=== PATIENT | female | born 1960 | race Caucasian/White ===

== ENCOUNTER 2021-06-02 14:30 | Outpatient (RCR) | payer OTHER, SELFPAY ==
--- NOTE | 2021-05-20 16:00 | HP.PTEVAL_ITS ---
Patient's Visit Information JESSICA BORREGO is a 60 year old F referred to Physical Therapy by Dr. Harjinder Gomez DO with a diagnosis of B knee OA. Date of Evaluation: 05/20/21 Physical Therapist: London Wade, PT, ATC - Visit Plan Frequency: 1x/Week Duration: 1-2 weeks Plan: Issue and instruct pt on HEP of B LE strengthening and core stab next visit - Subjective Pt reports she has had B knee pain for approximately 15 years. Pt notes she always hoped it would go away as she was too young for TKA, but the pain has progressively worsened and she now wants to try some treatment for her pain. Pt notes she had recent x-rays which revealed significant OA in B knees. Pt was told she is a candidate for TKA, but would like to try PT first. Pt reports she has had the stem cells transplant, injections, and PT in the past with no succes s. Pt denies tingling or numbness in her LE's. Pt denies sleep difficulty at this time. Pt reports she has difficulty with chair transfers, walking up or down inclines, and stairs are all difficult secondary to pain. Pt reports she would like to be able to go on walks but cant secondary to B knee pain. 0/10 pain at rest, 8/10 at worst. No popping, clicking, locking up, or giving out at this time. Pt reports she is scheduled for R TKA on 08/31/21 at this time. - Pain B knees Pain Intensity (Out of 10): 0 Pain Intensity Range: 8 - Objective Neuro: B LE sensation is WNL to light touch. B achilles reflex= 2/3. Palpation: Mild swelling noted at this time. Crepitus present with AROM. Girth at joint line: R knee = 46 cm, L knee 45 cm. ROM: R knee 0-12-125, L knee 0-14-120. MMT: B knee flex= 5/5, ext= 4-/5 and painful. Special tests: No pos findings this date - Balance/Special Test Scores Lower Extremity Functional Score: 38 - Goals Goal 1:: I with HEP Goal Time Frame: 1 Week - Rehabilitation Potential Physical Therapy Diagnosis: Pt has B knee pain, weakness, and limited ROM secondary to degenerative changes in B knees Rehabilitation Potential: Good - Anticipated Interventions Patient/Client Instruction: Educate patient on: Condition, Plan of Care For the Purpose of:: To improve self management Therapeutic Exercise to Include: Strength training, Endurance training, Active ROM, Dynamic Lumbar Stabilization For the Purpose of:: To decrease pain, To increase ROM, To improve muscle performance and motor function Cryotherapy (ice pack, ice massage): Yes For the Purpose of:: To decrease pain Thank you for the opportunity to evaluate your patient. For Medicare and Medicare HMO plans, please review the plan of care and approve it. It will need to be FAXED BACK to us at [phone] for Medicare purposes. For Medicare only, by signing this I certify the plan of care. Please let me know if there are questions or concerns regarding this plan of care. Physician Signature: Date:
--- NOTE | 2021-06-02 15:23 | HP.PTDCSUM ---
It has been my pleasure to treat JESSICA BORREGO referred by Dr. Harjinder Gomez DO, with the diagnosis of B knee OA for a total of 2 visit(s). Discharge Date: Please see the following information for a summary of their discharge status. Subjective: Mild pain this date B knees Pain Intensity (Out of 10): 5 % Improvement: 0 Objective/Function: Pt is now I with HEP. Rx goals achieved Goal 1:: I with HEP Goal Progress: Goal Met Plan: Issue and instruct pt on HEP of B LE strengthening and core stab next visit If there are questions or concerns regarding this patient's physical therapy, please feel free to call me at [phone]. Thank you for the referral of this patient. Sincerely, London Wade, PT, ATC Balance/Gait/Functional tests - Balance/Special Test Scores Lower Extremity Functional Score: 38
== END 2021-06-02 19:00 | disposition home or self-care (01) ==
LOC: PT 14:30
PROVIDERS: PCP Family Medicine; Referring Provider Orthopaedic Surgery; Visit Provider Orthopaedic Surgery
DX: M17.0 Bilateral primary osteoarthritis of knee (principal)
CPT/HCPCS: 97110; 97161

== ENCOUNTER 2021-06-02 15:57 | Outpatient (CLI) | payer OTHER, SELFPAY ==
--- NOTE | 2021-06-02 16:01 | CT_ITS ---
STUDY: CT SCAN LOWER EXTREMITY RIGHT.[facility] protocol. REASON FOR EXAM: Female, 61 years old. Templating for right TKA RADIATION DOSAGE (If Supplied By Facility): CTDIvol = ( 26.71 ) mGy, DLP = ( 1775.93 ) mGycm. Individualized dose optimization techniques were used for this CT.? TECHNIQUE: Multiple axial tomographic images of the right hip, knee and ankle joints were obtained. Coronal and sagittal reconstructions obtained as well. COMPARISON: None. FINDINGS: Imaging of the right hip joint was obtained. No significant abnormality is seen. Imaging of the right knee joint was obtained. There is a marked degree of joint space narrowing involving the medial compartment of the knee joint with the chest perforation of the distal medial femoral condyle as well as the medial tibial plateau. Degenerative spur formation is seen along the lateral femoral condyle and tibial plateau. Moderate degree of joint space narrowing of the patellofemoral joint with degenerative spur formation. Small joint effusion. Imaging of the ankle joint was obtained. No significant abnormality is seen. There is evidence of a small plantar spur. CT/Extremity Lower without Contra IMPRESSION: Marked degree of joint space narrowing with degenerative spur formation involving the medial compartment of the knee joint as well as the patellofemoral joint. Electronically Signed: Desmond Stover MD at 15:34 EST ,
== END 2021-06-02 23:59 | disposition home or self-care (01) ==
LOC: CT 16:00
PROVIDERS: PCP Family Medicine; Referring Provider Orthopaedic Surgery; Visit Provider Orthopaedic Surgery
DX: M17.0 Bilateral primary osteoarthritis of knee (principal)
CPT/HCPCS: 73700

== ENCOUNTER 2021-07-09 19:44 | Emergency (ER) | payer OTHER, SELFPAY ==
[2021-07-09 19:44] VITALS: BP 180/81; PULSE 71; RESP 16; TEMP 36.6; O2SAT 98; BMI 31.9
--- NOTE | 2021-07-09 20:06 | EDS_ITS ---
HPI History of Present Illness Chief Complaint: Back Narrative Narrative: Patient presents with low back pain for about a week. She does not know of any injury although she does lift at work. The pain does not radiate into her legs, she does not have any bowel or bladder compromise she does not have any urinary retention symptoms. She has no saddle anesthesia. She has no fevers or chills. She has no abdominal pain nausea or vomiting or constipation. She was seen by orthopedics and given steroid which improved her symptoms very briefly and now they are back again. [facility] Medical History Bilateral primary osteoarthritis of knee Home Medications antiarthritic combination no.2 900 mg tablet mg PO 05/12/21 [History Last Taken Unknown] ascorbic acid (vitamin C) 500 mg tablet 500 mg PO DAILY 05/12/21 [History Last Taken Unknown] calcium citrate 200 mg (950 mg) tablet 200 mg PO DAILY 05/12/21 [History Last Taken Unknown] cholecalciferol (vitamin D3) 25 mcg (1,000 unit) capsule 25 mcg PO DAILY 05/12/21 [History Last Taken Unknown] omega-3 fatty acids-fish oil 300 mg-500 mg capsule cap PO 05/12/21 [History Last Taken Unknown] sertraline 50 mg tablet tablet PO 05/12/21 [History Last Taken Unknown] cyclobenzaprine 10 mg PO TID #20 tab 07/09/21 [Rx Last Taken Unknown] hydrocodone-acetaminophen 1 tab PO Q6H PRN 3 Days #10 tab 07/09/21 [Rx Last Taken Unknown] Allergy/AdvReac Type Severity Reaction Status Date / Time No Known Allergies Allergy Verified 07/09/21 19:46 Family History Mother Cancer Father COPD (chronic obstructive pulmonary disease) Surgical History H/O tubal ligation Social History household members: spouse Smoking Status: Never smoker alcohol intake: never ROS ROS ED ROS Narrative Past medical history: Reviewed Medications: Reviewed Social history: Noncontributory Review of systems: All systems negative except as indicated General: No fever Eyes: No visual changes ENT: No upper airway congestion, normal voice Neck: No neck pain Cardiovascular: No chest pain Respiratory: No shortness of breath or cough Gastrointestinal: No abdominal pain, nausea vomiting or diarrhea Genitourinary: No dysuria Musculoskeletal: Denies myalgias no difficulty with ambulation. Back pain as in HPI Skin: No rash Neurological: No memory loss, confusion or any focal weakness Psych: No recent behavioral changes Hematologic: No easy bleeding or easy bruising EXAM Physical Exam Narrative Exam Narrative: Vitals reviewed General: Patient appears in some discomfort HEENT: Moist mucous membranes Neck: Nontender Cardiovascular normal heart rate Respiratory: No respiratory difficulty speaking in full sentences Abdomen: Soft and nontender, there is no suprapubic mass or pain Back: There is some tenderness over the lumbar region, pain is spinal and paraspinal both. Extremities: Moves all extremities without joint pain or signs of trauma Neurological: There is normal plantar flexion and dorsiflexion of both feet and great toes. Patellar and Achilles reflexes are normal. Normal strength and sensation. Negative straight leg test. Skin: No rash Psychiatric: Slightly anxious. Const Vital Signs: 07/09/21 19:44 Temperature 97.9 F Temperature Source Temporal Pulse Rate 71 Respiratory Rate 16 Blood Pressure 180/81 H Blood Pressure Mean 114 Pulse Ox 98 Oxygen Delivery Method Room Air MDM MDM MDM Narrative Medical decision making narrative: Patient has a normal work-up, she does show DJD on CT, she has no signs or symptoms of cauda equina. I will discharge her with analgesia and she can follow-up with the back specialist. Radiography Diagnostic Testing: Clinical Impression(s) from Imaging Studies Abdomen/Pelvis CT 07/09/21 20:10 IMPRESSION: 1. Right nephrolithiasis. No hydronephrosis. 2. Colonic diverticulosis without evidence of acute diverticulitis. 3. Degenerative changes lower lumbar spine. Electronically Signed: Yelitza Champion MD at 20:37 EDT , Discharge Plan Triage Chief Complaint: Back ED Provider: Frankie Gale Dx/Rx/DC Orders Clinical Impression: Back pain, DJD (degenerative joint disease) Instructions: Back Basics: A Healthy Spine, Back Exercises: Back Release Prescriptions: New hydrocodone-acetaminophen 5-325 mg tablet 1 tab PO Q6H PRN (Reason: pain) 3 Days Qty: 10 RF: 0 cyclobenzaprine 10 mg tablet 10 mg PO TID Qty: 20 RF: 0 No Action sertraline 50 mg tablet PO RF: 0 glucosamine-chondroitin 900 mg tablet PO RF: 0 calcium citrate 200 mg (950 mg) tablet 200 mg PO DAILY RF: 0 cholecalciferol (vitamin D3) 25 mcg (1,000 unit) capsule 25 mcg PO DAILY RF: 0 Fish Oil 300-500 mg capsule PO RF: 0 ascorbic acid (vitamin C) 500 mg tablet 500 mg PO DAILY RF: 0 Primary Care Provider: Luis F Ghosh Referrals: Luis F Ghosh MD [Primary Care Provider] - 3-5 Days Disposition Disposition: Home, Self Care
[2021-07-09] MEDS: oxyCODONE 5 MG Tablet PO (20:10)
--- NOTE | 2021-07-09 20:10 | CT_ITS ---
STUDY: CT ABDOMEN AND PELVIS WITHOUT CONTRAST REASON FOR EXAM: Female, 61 years old. back pain RADIATION DOSAGE (If Supplied By Facility): CTDIvol = ( 12.03 ) mGy, DLP = ( 661.16 ) mGycm TECHNIQUE: Transaxial images were obtained from the dome of the diaphragm to the symphysis pubis without oral contrast, and without intravenous contrast. Sagittal and coronal images were reconstructed. Individualized dose optimization techniques were used for this CT. COMPARISON: None. FINDINGS: LOWER CHEST: Included lung bases are clear. LIVER: Grossly unremarkable. GALLBLADDER AND BILIARY TREE: Grossly unremarkable. PANCREAS: Grossly unremarkable. SPLEEN: Grossly unremarkable. ADRENAL GLANDS: Grossly unremarkable. KIDNEYS AND URETERS: Tiny calculus in the right kidney. No hydronephrosis. PERITONEUM: No free air. No free fluid. BOWEL: Scattered diverticula throughout the colon. No bowel obstruction. APPENDIX: Visualized and unremarkable. No evidence of acute appendicitis. VESSELS: Abdominal aorta is normal caliber. REPRODUCTIVE ORGANS: Grossly unremarkable URINARY BLADDER: Minimally distended. ABDOMINAL WALL: Unremarkable. BONES: Degenerative changes in the lumbar spine. No acute abnormalities. CT/Abdomen/Pelvis without Cont IMPRESSION: 1. Right nephrolithiasis. No hydronephrosis. 2. Colonic diverticulosis without evidence of acute diverticulitis. 3. Degenerative changes lower lumbar spine. Electronically Signed: Yelitza Champion MD at 20:37 EDT ,
[2021-07-09] MEDS: HYDROmorphone 1 MG/ML Syringe IM (21:08)
[2021-07-09 21:31] VITALS: BP 136/66; PULSE 55; RESP 15; O2SAT 96
[2021-07-09 21:33] VITALS: BP 136/66; PULSE 55; RESP 15; O2SAT 97
== END 2021-07-09 21:35 | disposition home or self-care (01) ==
PROVIDERS: Emergency Provider Emergency Medicine; PCP Family Medicine; Visit Provider Emergency Medicine
DX: M51.36 Other intervertebral disc degeneration, lumbar region (principal)
CPT/HCPCS: 74176; 96372; 99282

== ENCOUNTER 2021-11-10 09:30 | Outpatient (RCR) | payer OTHER, SELFPAY ==
--- NOTE | 2021-10-12 14:05 | HP.PTEVAL ---
Patient's Visit Information JESSICA BORREGO is a 61 year old F referred to Physical Therapy by DEIDRE Villegas with a diagnosis of S/P BERNARDA POST LAMINECTOMY L2, L3, L4 AND L5 ON 09/17/21.. Date of Evaluation: 10/12/21 Physical Therapist: Priya Holley, PT, Cert MDT - Visit Plan Frequency: 2-3x /Week Duration: 4-6 Weeks Plan: POSTURE CORRECTION/STRENGTHENING, INSTRUCTION IN APPROPRIATE BODY MECHANICS AND ACTIVITY MODIFICATIONS. DLS STARTING WITH A NEUTRAL SPINE ONLY UNTIL 11/02/21 THEN PROGRESS ROM TOLERATED STARTING WITH SKTC AND LTR INI LYING. BERNARDA LE ROM, STRETCHING AND STRENGTHENING. HEP INSTRUCTION. CONSIDER AQUATIC THERAPY IN THE FUTURE. PATIENT AGREEABLE. 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 Disability: NO. Present symptoms: INTERMITTENT LOW BACK DISCOMFORT. LEFT HIP PAIN (STARTED AFTER BACK SURGERY). BERNARDA KNEE PAIN. DENIES LE NUMBNESS AND TINGLING (WAS HAVING BERNARDA NUMBNESS AND TINGLING TO FEET BEFORE SURGERY). Present since: JULY 02 2021 WAS WHEN SIGNIFICANT PROBLEMS STARTED BUT SOME INTERMITTENT BACK PAIN FOR MONTHS PRIOR. Pain Scale: WORST 3/10, LEAST 0/10. Currently: 1-2/10. Commenced as a result of: NO APPARENT REASON. JUST WOKE UP WITH SEVERE BACK/BUTTOCK AND HIP PAIN. Symptoms at onset: BUTTOCK/HIP PAIN. Worse: WALKING, GETTING UP AND DOWN FROM A CHAIR. Better: LYING DOWN. Disturbed sleep: NO. Previous history/Previous treatment: CHIROPRACTOR ONCE A MONTH FOR ABOUT 10 YEARS FOR ADJUSTMENTS. Treatment this episode: BACK SURGERY. Coughing/sneezing/straining: UNSURE. Gait: I LIMP DUE TO MY KNEES. BOWEL OR BLADDER DYSFUNCTION: NO. Accidents: NO. Unexplained weight loss: NO. Imaging: NONE SINCE SURGERY. MRI PRIOR TO SX. PMH/Recent major surgery: DEPRESSION. PATIENT REPORTS SHE HAD R TKR SCHEDULED FOR AUGUST 2021 BUT CANCELLED DUE TO BACK FLARE UP. REPORTS SHE NEEDS BERNARDA TKR'S DUE TO ARTHRITIS. OTHER: HAS NOT RESUMED ANY EX'S EXCEPT WALKING SINCE BACK SURGERY. WEARING BACK BRACE MOST OF THE TIME WHEN UP ON FEET CURRENTLY. - Objective Sitting/Standing Posture: POOR. REDUCED LORDOSIS. NO RELEVENT LATERAL SHIFT. Active Correction of posture: BETTER. Other Observations: THIS PATIENT AMBULATES INEP'LY INTO PT WITHOUT ANY AD'S OR LOB BUT LIMPING ON BERNARDA LE'S. MILD INCREASED TRUNK FLEXION. PATIENT IS UNABLE TO TRANSITION FROM SIT TO STAND WITHOUT UE ASSIST AND PATIENT REPORTS IT IS DUE TO HER KNEES NOT HER BACK. Sensory deficit: BERNARDA LE LIGHT TOUCH SENSATION IS GROSSLY INTACT AND SYMMETRICAL. ROM deficit: TIGHT BERNARDA HS'S AND GASTROC SOLEUS COMPLEX'S. RIGHT KNEE AROM IN SUPINE WITH A HEEL SLIDE = -23 DEG EXT TO 125 DEG FLEX. LEFT KNEE -15 DEG TO 123 DEG. Motor deficit: BERNARDA LE'S GROSSLY 4/5 EXCEPT ANKLES 5/5. Dural Signs: NEGATIVE BERNARDA LE'S. Lumbar mvmt loss: NT. Core strength: POOR. Palpation: INCISION LOOKS GOOD WITHOUT ANY SIGNS OF INFECTION BUT THERE IS ONE STITCH AT THE VERY BOTTOM OF HER INCISION THAT IS VISIBLE. TREATMENT: NEUROMUSCULAR REEDUCATION - RETRAINING OF MVMT AND POSTURE FOR SITTING, LYING AND STANDING ACTIVITIES. INSTRUCTED IN APPROPRIATE WEANING FROM BACK BRACE, WALKING PROGRAM, PROPER POSTRUE CONTROL, BODY MECHANICS AND APPROPRIATE ACTIVITY MODIFICATIONS. - Balance/Special Test Scores Oswestry Low Back Score: 4 - Goals Goal 1:: DECREASE C/O LOW BACK PAIN Goal Time Frame: 4-6 Weeks Goal 2:: IMPROVE CORE STRENGTH AND STABILITY TO EASE ADL'S. Goal Time Frame: 4-6 Weeks Goal 3:: INSTRUCT IN PROPHYLAXIS Goal Time Frame: 4-6 Weeks - Anticipated Interventions Patient/Client Instruction: Educate patient on: Condition, Plan of Care, Risk Factors For the Purpose of:: To improve self management Therapeutic Exercise to Include: Strength training, Body mechanics, Postural training, Flexibilty training, Gait and locomotor training, Neuromotor development, In an aquatic setting, Dynamic Lumbar Stabilization For the Purpose of:: To decrease pain, To increase ROM, To improve muscle performance and motor function, To increase tolerance to activity/condition/position, To improve ability of physical actions for home/community/work/leisure, To improve gait and locomotor functions Thank you for the opportunity to evaluate your patient. For Medicare and Medicare HMO plans, please review the plan of care and approve it. It will need to be FAXED BACK to us at [phone] for Medicare purposes. For Medicare only, by signing this I certify the plan of care. Please let me know if there are questions or concerns regarding this plan of care. Physician Signature: Date:
--- NOTE | 2021-11-10 10:15 | HP.PTDCSUM ---
It has been my pleasure to treat JESSICA BORREGO referred by Melissa Orozco NP-C, with the diagnosis of S/P BERNARDA POST LAMINECTOMY L2, L3, L4 AND L5 ON 09/17/21. for a total of 12 visit(s). Discharge Date: 11/10/21 Please see the following information for a summary of their discharge status. Subjective: PATIENT REPORTS SHE IS DOING GOOD. REPORTS HER BACK IS 90% BETTER. FEELS READY TO GO BACK TO WORK - JUST THINKS SHE WILL BE TIRED. LOW BACK Pain Intensity (Out of 10): 1 % Improvement: 90 Objective/Function: PATIENT WAS SEEN TODAY FOR RE-ASSESSMENT OF PROGRESS TOWARD THE SET PT GOALS AND THE NEED FOR FURTHER PHYSICAL THERAPY VS READINESS FOR DISCHARGE. ALL GOALS MET. PATIENT IS APPROPRIATE FOR DISCHARGE. UPON EXAM TODAY LUMBAR MVMT LOSS IS FOLLOWS: FLEX - MIN, EXT - MOD, BERNARDA SG - MOD. PATIENT DENIES PAIN WITH LUMBAR ROM TESTING ALL PLANES. Goal 1:: DECREASE C/O LOW BACK PAIN Goal Progress: Goal Met Goal 2:: IMPROVE CORE STRENGTH AND STABILITY TO EASE ADL'S. Goal Progress: Goal Met Goal 3:: INSTRUCT IN PROPHYLAXIS Goal Progress: Goal Met Plan: D/C TO INDEP EX. PATIENT IS AGREEABLE. DISCUSSED THE POSSIBLE BENEFITS OF AQUATIC THERAPY AND SHE DOES NOT WANT TO TRY IT AT THIS TIME. If there are questions or concerns regarding this patient's physical therapy, please feel free to call me at [phone]. Thank you for the referral of this patient. Sincerely, Priya Holley, PT, Cert MDT Balance/Gait/Functional tests - Balance/Special Test Scores Oswestry Low Back Score: 5
== END 2021-11-10 10:53 | disposition home or self-care (01) ==
LOC: PT 09:30
PROVIDERS: PCP Family Medicine; Referring Provider Nurse Practitioner Acute Care; Visit Provider Nurse Practitioner Acute Care
DX: M48.061 Spinal stenosis, lumbar region without neurogenic claudication (principal); Z48.89 Encounter for other specified surgical aftercare
CPT/HCPCS: 97110; 97112; 97162; 97164; 97530

== ENCOUNTER 2022-02-15 05:33 | Day surgery (SDC) | payer OTHER, SELFPAY ==
--- NOTE | 2022-02-04 13:46 | EKG12_ITS ---
Test Reason : PRE OP Blood Pressure : / mmHG Vent. Rate : 067 BPM Atrial Rate : 067 BPM P-R Int : 188 ms QRS Dur : 104 ms QT Int : 420 ms P-R-T Axes : 041 -32 025 degrees QTc Int : 443 ms Normal sinus rhythm Left axis deviation Nonspecific ST abnormality Abnormal ECG Confirmed by RICARDO DELGADO, JOSÉ ([id number]), tape editor KIMBERLI NESBITT ([id number]) on 02/07/2022 1:23:20 PM Referred By: Harjinder Gomez Confirmed By:JOSÉ SILVA MD
[2022-02-04 15:42] LABS: Absolute Lymphocyte Count 1.79 X10^3/uL (0.83-4.51); Absolute Neutrophil Count 2.8 X10^3/uL (2.0-7.7); Basophil# 0.01 X10^3/uL; Basophil% 0.2 % (0-1); Eosinophil# 0.03 X10^3/uL; Eosinophils% 0.6 % (0-5); Hematocrit 35.1 % (37-47); Hemoglobin 11.3 g/dL (12.0-15.0); Lymphocyte # 1.79 X10^3/ul (0.83-4.51); Mean Corp Hgb Conc 32.2 g/dL (32-36); Mean Corpuscular Hgb 28.3 pg (27.0-32.0); Mean Corpuscular Volume 87.8 fL (81-99); Mean Platelet Vol. 10.5 fl (6.2-12.0); Monocyte# 0.35 X10^3/uL; NRBC Flagged by Analyzer 0 % (0-5); Neutrophil # 2.78 X10^3/uL (2.7-7.7); Platelet Count 243 K/mm3 (150-450); RBC Distribution Width CV 13.2 % (11.6-14.6); RBC Distribution Width SD 42.1 fl (35.1-43.9)
[2022-02-04 15:53] LABS: Hemoglobin A1c 5.6 % (3.8-5.6)
[2022-02-04 15:55] LABS: International Normalized Ratio 1.1; Prothrombin Time (Protime)PT. 13.5 SECONDS (11.7-14.9)
[2022-02-04 16:12] LABS: Anion Gap 6 (5-15); BUN 23 mg/dL (7-18); BUN/Creat Ratio 36.3 RATIO (10-20); Calcium,Total 8.9 mg/dL (8.5-10.1); Chloride 103 mmol/L (98-107); Creatinine, Serum 0.63 mg/dL (0.55-1.02); EST Glomerular Filtration Rate 101 mL/min (>60); Est Glom Filt Rate - Afr Amer 122 mL/min (>60); Glucose 92 mg/dL (74-106); Potassium 3.9 mmol/L (3.5-5.1); Sodium Level 138 mmol/L (136-145)
[2022-02-04 16:15] LABS: Magnesium 2.1 mg/dL (1.6-2.6)
[2022-02-06 10:48] LABS: Fructosamine 250 umol/L (0-285)
[2022-02-15] VITALS (10 sets, daily range): BP systolic 109–151; BP diastolic 49–72; PULSE 51–72; RESP 14–18; TEMP 36.2–36.6; O2SAT 96–100; BMI 31.1
[2022-02-15] MEDS: Acetaminophen 500 MG Tablet 1000 MG PO ×2 (06:59→14:33)
[2022-02-15] MEDS: Scopolamine 1mg/72hr Patch 1 PATCH TD (06:59)
[2022-02-15] MEDS: Gabapentin 600 MG Tablet PO (07:00)
[2022-02-15] MEDS: Celecoxib 200 MG Capsule 400 MG PO (07:00)
--- NOTE | 2022-02-15 07:30 | KNEE_PTH ---
PATIENT: JESSICA BORREGO LOC: [facility] [place] U#:[id number] AGE/SX: 61/F ROOM: RE02/15/[address]: Dr. Harjinder Gomez DO : 1960 BED: DIS: 02/15/2022 SPEC #: [id number] RECD: 02/15/22 12:53 STATUS: USAMA RERey #: [id number] DASIA: 02/15/22 07:[address]: Harjnider Gomez DEPT: SURGICAL PATHOLOGY RECD BY: Kayla Rodriguez ENTERED: 02/15/22 13:17 SP TYPE: TOTAL KNEE OTHR DR: Dr. Luis F Ghosh MD Tissues: Knee, NOS Procedures: Decalcification bone/plaque Surgery Specimen Level IV HEADER OPERATION: ERAS, total knee replacement robotic arm assist PRE-OP DIAGNOSIS: Osteoarthritis, right knee TISSUE SUBMITTED: Right knee debrided bone and tissue MICROSCOPIC DIAGNOSIS Bone and soft tissue right knee, total knee replacement/resection: Pieces of bone with degenerative osteoarthritic changes. /SJ 02/18/22 MICROSCOPIC DESCRIPTION Slides are reviewed. GROSS DESCRIPTION Received is one container designated bone and soft tissue right knee. The specimen consists of multiple fragments of lucero-yellow bone measuring in aggregate 9 x 9 x 4 cm. No soft tissue is identified. A number of bony fragments contain articular surfaces consistent with tibial plateau and femoral condyle and displaying prominent osteophyte formation, eburnation, and bone erosion. Finish Machine Tender sections are submitted in one cassette after decalcification. /ASHELY:lori 02/15/2022 TC:5 CPT: 58544, 91635
[2022-02-15 07:35] LABS: Bedside Glucose 76 mg/dL (74-106)
[2022-02-15] MEDS: Cefazolin 2 GM in 0.9% Normal Saline 100 ML IV (07:38)
[2022-02-15] MEDS: dexAMETHasone 10 MG/ML Vial IV (07:45)
[2022-02-15] MEDS: TXA 1000mg in NS100 100ml (IVPB at Incision) 660 MG IV (07:45)
[2022-02-15] MEDS: TXA 1000mg in NS100 100ml (IVPB at Closure) 660 MG IV (08:13)
[2022-02-15] MEDS: Lactated Ringers 1,000 ML 125 ML IV (08:30)
[2022-02-15] MEDS: 0.9% Normal Saline (Pres. free 10 ML Vial (09:03)
[2022-02-15] MEDS: Bupivacaine 0.25% 30 ML Vial (09:03)
[2022-02-15] MEDS: Epinephrine (1 mg/ml) 1 MG/ML VIAL (09:03)
[2022-02-15] MEDS: Betamethasone/Betamethasone 30 MG/5 ML Vial (09:03)
--- NOTE | 2022-02-15 09:49 | PCM.HP.BLA ---
History and Physical Date of Admission: 02/15/22 [facility] [address] [place] [address] OFFICE VISIT Date of Service:? 01/12/22 MR#: [id number] Acct: [id number] Name:JESSICA RIBEIRO Rep #: [id number] : 1960 ? ? Provider: Dr. Harjinder Gomez, DO Age/Sex:? 61/F ? ? Location: [facility] [place] Status: Signed Intake Vital Signs ? 07/09/2218:44 Height 5 ft 8 in Weight: 210 lb BMI 31.9 BP 180/81 H Respiration 16 Pulse 71 Temp 97.9 F Temp Source Temporal Pulse Oximetry (%) 98 Intake Visit Reasons:?Bilat knees Is patient in pain?: Yes Allergies No Known Allergies Allergy (Verified 01/12/22 14:20) Medications antiarthritic combination no.2 900 mg tablet (glucosamine-chondroitin) mg PO 05/12/21 [History Confirmed 01/12/22] ascorbic acid (vitamin C) 500 mg tablet 500 mg PO DAILY 05/12/21 [History Confirmed 01/12/22] calcium citrate 200 mg (950 mg) tablet 200 mg PO DAILY 05/12/21 [History Confirmed 01/12/22] cholecalciferol (vitamin D3) 25 mcg (1,000 unit) capsule 25 mcg PO DAILY 05/12/21 [History Confirmed 01/12/22] omega-3 fatty acids-fish oil 300 mg-500 mg capsule (Fish Oil) cap PO 05/12/21 [History Confirmed 01/12/22] sertraline 50 mg tablet tablet PO 05/12/21 [History Confirmed 01/12/22] PFSH Medical History? Bilateral primary osteoarthritis of knee Surgical History? H/O tubal ligation Family History? Mother CancerFather COPD (chronic obstructive pulmonary disease) Social History? household members:? spouse Smoking Status:? Never smoker alcohol intake:? never HPI Bilat knees Details: Parts of this documentation were recorded by a scribe, this documentation accurately reflects the service provided and the decisions made by me, Dr. Harjinder Gomez, DO 01/12/22 1035. JESSICA BORREGO is a 61 year old F here today for bilateral knee pain, right knee worse than left. Patient states that she had surgery scheduled for her right TKA but had to cancel due to a spine surgery. She had surgery and is doing well. Patient denies any infections or complications. Patient notes that she has pain over her entire knee. She has stiffness and swelling. She has increased pain with ambulating stairs. Patient denies any recent injections. Patient denies any pain medications. Ortho Exam General General: Yes no acute distress Neurologic: Yes alert and Yes oriented x3 Psychologic: Yes reasonable and appropriate Right Knee Skin/Wound: Yes CDI, No erythema, No ecchymosis and No swelling Knee ROM: Yes ROM-Extension -20 to 0 (-7) and Yes ROM-Flexion 0-140 (120) Examination: No Med jt line tenderness, No Lat jt line tenderness and No TTP Pes Anserine Stability: NML: Valgus 0, NML: Valgus 30, NML: Varus 0 and NML: Varus 30 Patella Translation: 1 Patella Grind: No KNEE: bruise over anterior ruiz Left Knee Patella Translation: 1 Supplemental Info 05/12/2021 x-ray right knee: Advanced knee arthrosis [id number] medial compartment varus deformity 05/12/2021 x-ray left knee: Advanced knee arthrosis [id number] medial compartment varus deformity Coding Level of Care Code Off vis,est,level 3 Diagnoses Bilateral primary osteoarthritis of knee? M17.0 Assessment and Plan Assessment and Plan (1) Bilateral primary osteoarthritis of knee: ?Status:?Acute ? ? ? Orders: Orders Knee 4 or More Views Today M17.0 - Bilateral primary osteoarthritis of knee ? Plan Spoke with the patient about the surgery procedure. Spoke with her about the iovera procedure prior to surgery. She should not take ibuprofen or aleve 7 days prior to surgery. Spoke with her about the importance of physical therapy and range of motion. Patient will be off work for 2-3 months depending on her pain. She will be on a blood thinner post op. She will have surgery done as an outpatient procedure. Risks, benefits and alternatives of surgery reviewed including but not limited to bleeding, infection, nerve, artery and/or tissue damage, fracture, VTE, mechanical feel of the knee, continued pain, stiffness and expected post-operative course. Follow up for Iovera or sooner if pain, swelling, numbness or associated symptoms, or concerns develop.? All questions answered. Patient in agreement of plan. 01/12/22 1551 <Electronically signed by Harjinder Gomez DO> Date Harjinder Gomez DO Cosigner Signature: Date (if applicable) ? CC:? Dr. Luis F Ghosh MD ~ I have examined the patient and the H&P has been reviewed. There are no clinical changes since date of exam.
--- NOTE | 2022-02-15 09:49 | PCM.OP.BLANK ---
Operative Report Date of Procedure: 02/15/22 Preoperative diagnosis: Right knee DJD Postoperative diagnosis: Same Procedure: Right total knee arthroplasty CT guided Robotic Assisted Implant: [place] triathlon press fit, femoral component size5, tibial baseplate size 4, asymmetric patella size 35, polyethylene X3 size 9 CS Anesthesia: Spinal with adductor canal block Tourniquet time: 14 minutes at 300 mmHg Complications: None Condition: Stable to PACU Estimated blood loss: 200 cc Indication for procedure: This is a 61-year-old female with long standing degenerative joint disease of the knee who has failed conservative treatment and wished to proceed with elective total knee arthroplasty. Risk benefits and alternatives were reviewed including; risk of bleeding, infection, nerve artery and tissue damage, continued pain, postoperative stiffness, venous thromboembolism, need for postoperative rehabilitation, mechanical feel to the knee, and expected postoperative course. The pre- operative CT and templating was performed with component sizing. Procedure: The patient was met in the preoperative holding area. The operative extremity was identified by both patient and physician and was marked. Patient was met by anesthesia. An adductor canal block was placed by anesthesia postoperatively the patient was brought back to the operating room on a wheeled cart and transferred to the operating table in the supine position. Anesthesia was started. A well-padded tourniquet was placed on the operative extremity. The patient was prepped and draped in the usual sterile fashion. A timeout was called to ensure the proper patient procedure and extremity were being contemplated. An esmarch was used to exsanguinate the extremity. The tourniquet was inflated. A 10 blade scalpel was used to make a midline incision down through the skin and subcutaneous tissue. Skin retractors placed. Bovie and Aquamantis were used to perform meticulous hemostasis. full-thickness flaps were elevated medial and lateral along the joint capsule. A deep blade scalpel was used to perform a medial parapatellar arthrotomy. The knee was brought to full extension. A bovie was used to release the soft tissues off the most proximal aspect of the medial tibial plateau, a three-quarter inch curved osteotome was also used in this process. The infrapatellar fat pad was excised. The suprapatellar fat pad was excised partially anteriorolateraly and portion the anterioromedial pad was elevated from the femur. At this point our intra-articular femoral array was placed at a 45 degree angle proximal and posterior to the medial epicondyle. femoral checkpoint was placed at this time. Our tibial array was placed greater than 1 hands breath below the incision at a 20 degree angle stab incisions were made with a 15 blade scalpel and pins were placed and attached to the tibial array , tibial checkpoint was placed in the proximal tibial metaphysis. Tourniquet was let down. At this point registration zambrano were taken throughout the knee . Once the knee was registered we then tensioned the medial and lateral ligaments in extension and 90 degrees of flexion. We then used these numbers to adjust our components within parameters to balance the knee in both flexion and extension once this was done on our monitor we then proceeded with using the robotic arm to make our tibial plateau cut, anterior and posterior chamfer and distal femur cuts. we removed the cut fragments with the use of a bovie and Flash, we did use a lamina provider relations manager to insure we visualized and removed all posterior osteophytes and at this time also used the Aquamantis on the posterior joint capsule. we then trialed and achieved the desired plan with a well-balanced knee. we used the green probe to mario the corresponding tibial rotation based on our CT template. Lug holes were drilled in the femur the tibia preparation was completed with the appropriate sized base plate pinned based on previous rotation mario. An appropriate sized fin punch was used on the tibia and 4 corner drill was used for the press fit component and the patella was prepared by first using a caliper to ensure sufficient bone stock and a patellar reamer to remove the desired amount of bone. lug holes drilled for an asymmetric poly. We then brought the knee through range of motion with excellent patellar tracking. We thoroughly irrigated the knee. Trial components were removed a posterior capsular injection was preformed with our standard cocktail. In addition the aqua Mantis was also used to aid in hemostasis. Betadine rinse was allowed to sit and washed out completely. Components were press-fit into place. Aricept rinse was then used followed by several more liters of irrigation after it was allowed to sit. The joint capsule was closed with #1 Ethibond [id number]'s followed by Vicryl in the subcutaneous tissues with nikhil in the skin. Arrays and checkpoints were removed prior to closure all counts were correct stab incisions were closed with a staple standard dressing in the form of Mepilex AG for the main incision and a small Mepilex over the pin holes. Thigh-high ROBBIN hose applied over top of dressing. Patient tolerated the procedure well and was directed to PACU in stable condition . There were no intraoperative complications.
--- NOTE | 2022-02-15 09:51 | DCINST_ITS ---
Discharge Instructions Dressing / Incision Call your doctor if you observe: Shortness of breath and Chest pain Additional Dressing/Incision Instructions:: Ice and elevate lower extremities 2 weeks while not ambulating. Ambulation is encouraged. Weight bearing as tolerated. Use assistive devise for stability. Encourage FULL knee extension and flexion 1 time EVERY time you get up and down and MULTIPLE times per day. No showering 72 hours after surgery. Begin showering postop day #3. Remove the dressing prior to shower and gently wash with warm water and antibacterial soap then pat dry and place abdominal pad (or plain gauze) and ROBBIN hose over top. This is to be done daily. Do not submerge for 3 weeks. If not showering daily after the initial 72 hours then you must clean incision and change dressing daily. Do not allow animals near the incision area. Keep clean. Follow anti-coagulation recommendations as prescribed. Do not take any NSAIDs while on blood thinner. Do not take any additional narcotic pain medication other than what was prescribed on your surgery day without discussing with physician. Narcotic medication can be addictive. Do not drink alcohol while taking narcotics. Supplement narcotic prescription with acetaminophen 1000 mg 4 times a day. Start physical therapy. If you are not currently scheduled for physical therapy or you are unsure of appointment time please call office [facility] to arrange. Call Dr. Gomez with any concerns. Follow Up Care Please Follow Up With: Harjinder Gomez DO When: 2 weeks Test Results: Test results from this visit will be discussed in further detail at your follow- up appointment, if applicable. Discharge Plan Admission Attending Provider: Harjinder Gomez Primary Care Provider: Luis F Ghosh Discharge Orders/Prescriptions Prescriptions: New acetaminophen [acetaminophen] 500 mg tablet 1,000 mg PO Q6H PRN Qty: 100 0RF cephalexin [cephalexin] 500 mg capsule 1,000 mg PO Q8 Qty: 4 0RF Rx Instructions: take 2 tabs at 9:00 pm and 2 tabs after 5 am when you wake up Eliquis 2.5 mg tablet 2.5 mg PO BID Qty: 28 0RF Rx Instructions: Begin the morning after surgery oxycodone 5 mg tablet 5 - 10 mg PO Q4H PRN (Reason: pain) 7 Days Qty: 60 0RF Continued sertraline 50 mg tablet 25 mg PO DAILY glucosamine-chondroitin 900 mg tablet 1,500 mg PO DAILY calcium citrate 200 mg (950 mg) tablet 500 mg PO DAILY cholecalciferol (vitamin D3) 25 mcg (1,000 unit) capsule 5,000 unit PO DAILY ascorbic acid (vitamin C) 500 mg tablet 500 mg PO DAILY Probiotic 3 billion cell Capsule 1 cell PO DAILY Other Ambulatory Orders: 12 Lead EKG (Routine) Timeframe: [id number] Location: None Selected Ordered By: Dr. Harjinder Gomez Referrals / Follow Up: Luis F Ghosh MD [Primary Care Provider] - Disposition Disposition (needs filled in before D/C Order can be placed): Home, Self Care
--- NOTE | 2022-02-15 10:22 | RAD_ITS ---
STUDY: X-RAY - RIGHT KNEE REASON FOR EXAM: Female, 61 years old. Status post total knee arthroplasty. TECHNIQUE: 2 view(s) of the knee. COMPARISON: January 12, 2022. FINDINGS: 3 component total knee arthroplasty in anatomic position with expected post-operative and no complications. No other significant abnormality is identified. RAD/Knee 1 or 2 Views IMPRESSION: Total knee arthroplasty in anatomic alignment without complications. Electronically Signed: Ike Franco, at 11:18 EST ,
[2022-02-15] MEDS: oxyCODONE 5 MG Tablet PO ×2 (11:45→14:33)
[2022-02-15] MEDS: Cefazolin 1 GM/50 ML BAG IV (14:00)
== END 2022-02-15 16:20 | disposition home or self-care (01) ==
LOC: SDC 05:34 → AC 05:34
PROVIDERS: Anesthesiology; PCP Family Medicine; Referring Provider Orthopaedic Surgery; Visit Provider Orthopaedic Surgery
PROC: 0SRC0JZ Replacement of Right Knee Joint with Synthetic Substitute, Open Approach (ICD-10-PCS; CPT 27447; principal; 2022-02-15 07:00)
DX: M17.11 Unilateral primary osteoarthritis, right knee (principal); F41.9 Anxiety disorder, unspecified; F32.A Depression, unspecified; Z79.899 Other long term (current) drug therapy
CPT/HCPCS: 27447; 64450; 36415; 73560; 80048; 82962; 82985; 83036; 83735; 85025; 85610; 85730; 86850; 86900; 86901; 87081; 88305; 88311; 93005; 97162; C1776; J7120; J0702; J2405; J3475; J3490

== ENCOUNTER 2022-05-13 14:30 | Outpatient (RCR) | payer OTHER, SELFPAY ==
--- NOTE | 2022-02-17 11:00 | HP.PTEVAL ---
Patient's Visit Information JESSICA BORREGO is a 61 year old F referred to Physical Therapy by Dr. Harjinder Gomez DO with a diagnosis of R TKA 02/15/22. Date of Evaluation: 02/17/22 Physical Therapist: London Wade, PT, ATC - Visit Plan Frequency: 2-3x /Week Duration: 4-6 Weeks Plan: R knee PROM/mobs, stretching and strengthening, balance and proprio, gait training, stair neg, nustep, and HEP - Subjective DOS: 02/15/22. Pt reports she had R knee pain for approximately 15 years. Pt notes she had a R TKA performed on the DOS. P treports she is in a lot of pain today. Pt notes the meds wore off yesterday and she has been stiff and sore since. Pt reports she has been performing her HEP since the DOS. 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 Pt notes she has 3 stairs to enter the house, which she is able to negotiate one step at a time. Pt reports she has trouble sleeping at night right now secondary to pain. Pt also notes she has difficulty with bed transfers at this time secondary to pain. Pt denies tingling or numbness in R LE on this date. 3/10 pain at rest at this time, 9/10 pain at worst (while she is trying to get comfortable at home) - Pain R knee Pain Intensity (Out of 10): 3 Pain Intensity Range: 9 - Objective Neuro: B LE sensation is WNL to light touch. observation: Moderate swelling is noted this date. No obvious signs of infection. Girth at joint line: R knee 45 cm, L knee 40 cm. ROM: R knee 0-15-95, L knee 0-120 degrees. MMT: R knee flex= 17, ext= 2.7; L knee flex= 30, ext= 30 #F. TU.76 - Balance/Special Test Scores Lower Extremity Functional Score: 9 - Goals Goal 1:: Decrease R knee pain x 50% to aid with sleep Goal Time Frame: 4-6 Weeks Goal 2:: Increase R knee strength x 10#F to aid with stair negotiation Goal Time Frame: 4-6 Weeks Goal 3:: Increase R knee ROM x 30 degrees to aid with restoring a more normalized gait pattern Goal Time Frame: 4-6 Weeks Goal 4:: I with HEP Goal Time Frame: 4-6 Weeks - Rehabilitation Potential Physical Therapy Diagnosis: Pt has R knee pain, weakness, and limited ROM secondary to R TKA Rehabilitation Potential: Good - Anticipated Interventions Patient/Client Instruction: Educate patient on: Condition, Plan of Care For the Purpose of:: To improve self management Therapeutic Exercise to Include: Strength training, Endurance training, Balance training, Flexibilty training, Gait and locomotor training, Passive ROM, Active ROM, Dynamic Lumbar Stabilization For the Purpose of:: To decrease pain, To increase ROM, To improve muscle performance and motor function Cryotherapy (ice pack, ice massage): Yes For the Purpose of:: To decrease pain Thank you for the opportunity to evaluate your patient. For Medicare and Medicare HMO plans, please review the plan of care and approve it. It will need to be FAXED BACK to us at [phone] for Medicare purposes. For Medicare only, by signing this I certify the plan of care. Please let me know if there are questions or concerns regarding this plan of care. Physician Signature: Date:
--- NOTE | 2022-03-02 10:01 | HP.PTREVAL ---
Dr. Harjinder Gomez, DO, It has been my pleasure to treat JESSICA BORREGO over the last 6 visits for R TKA 02/15/22. Please see the progress note below for an update on the physical therapy plan of care! Subjective: I see the DrSebastien today Objective/Function: R knee pain ranges from 4-8/10. R knee ROM: 0-10-110. R knee MMT: flex= 23, ext= 5 #F. Pt is progressing well toward Rx goals at this time. Plan Plan: R knee PROM/mobs, stretching and strengthening, balance and proprio, gait training, stair neg, nustep, and HEP Balance/Gait/Functional tests - Balance/Special Test Scores Lower Extremity Functional Score: 9 Goals Goal 1:: Decrease R knee pain x 50% to aid with sleep Goal Time Frame: 4-6 Weeks Goal 2:: Increase R knee strength x 10#F to aid with stair negotiation Goal Time Frame: 4-6 Weeks Goal 3:: Increase R knee ROM x 30 degrees to aid with restoring a more normalized gait pattern Goal Time Frame: 4-6 Weeks Goal 4:: I with HEP Goal Time Frame: 4-6 Weeks Anticipated Interventions Patient/Client Instruction: Educate patient on: Condition, Plan of Care For the Purpose of:: To improve self management Therapeutic Exercise to Include: Strength training, Endurance training, Balance training, Flexibilty training, Gait and locomotor training, Passive ROM, Active ROM, Dynamic Lumbar Stabilization For the Purpose of:: To decrease pain, To increase ROM, To improve muscle performance and motor function Cryotherapy (ice pack, ice massage): Yes For the Purpose of:: To decrease pain Please do not hesitate to contact me at [phone] by phone or if you have questions or concerns regarding this new plan of care! Sincerely, London Wade, PT, ATC
--- NOTE | 2022-04-15 15:43 | HP.PTREVAL ---
Dr. Harjinder Gomez, DO, It has been my pleasure to treat JESSICA BORREGO over the last 20 visits for R TKA 02/15/22. Please see the progress note below for an update on the physical therapy plan of care! Subjective: I am getting better Objective/Function: R knee pain ranges from 2-3/10. Pt still has sleep difficulty at night secondary to pain. R Knee MMT: flex= 37, ext= 30. R knee ROM: 0-4-110 degrees. Pt is showing excellent progress but still lacks functional knee ext strength and ROM Plan Plan: Continue strengthening and ROM ex's. Balance/Gait/Functional tests - Balance/Special Test Scores Lower Extremity Functional Score: 48 Goals Goal 1:: Decrease R knee pain x 50% to aid with sleep Goal Time Frame: 4-6 Weeks Goal Progress: Progressing Goal 2:: Increase R knee strength x 10#F to aid with stair negotiation Goal Time Frame: 4-6 Weeks Goal Progress: Progressing Goal 3:: Increase R knee ROM x 30 degrees to aid with restoring a more normalized gait pattern Goal Time Frame: 4-6 Weeks Goal Progress: Progressing Goal 4:: I with HEP Goal Time Frame: 4-6 Weeks Goal Progress: Progressing Anticipated Interventions Patient/Client Instruction: Educate patient on: Condition, Plan of Care For the Purpose of:: To improve self management Therapeutic Exercise to Include: Strength training, Endurance training, Balance training, Flexibilty training, Gait and locomotor training, Passive ROM, Active ROM, Dynamic Lumbar Stabilization For the Purpose of:: To decrease pain, To increase ROM, To improve muscle performance and motor function Cryotherapy (ice pack, ice massage): Yes For the Purpose of:: To decrease pain Please do not hesitate to contact me at [phone] by phone or if you have questions or concerns regarding this new plan of care! Sincerely, London Wade, PT, ATC
--- NOTE | 2022-05-13 15:54 | HP.PTDCSUM_ITS ---
It has been my pleasure to treat JESSICA BORREGO referred by Dr. Harjinder Gomez DO, with the diagnosis of R TKA 02/15/22 for a total of 29 visit(s). Discharge Date: Please see the following information for a summary of their discharge status. Subjective: I am ready for discharge R knee Pain Intensity (Out of 10): 1 % Improvement: 85 Objective/Function: R knee pain /10. R knee ROM: 0-10-110. R knee strength flex= 26, ext= 37 #F. Pt is I with HEP Goal 1:: Decrease R knee pain x 50% to aid with sleep Goal Progress: Goal Met Goal 2:: Increase R knee strength x 10#F to aid with stair negotiation Goal Progress: Goal Met Goal 3:: Increase R knee ROM x 30 degrees to aid with restoring a more normalized gait pattern Goal Progress: Progressing Goal 4:: I with HEP Goal Progress: Goal Met Plan: Discharge to [facility] If there are questions or concerns regarding this patient's physical therapy, please feel free to call me at [phone]. Thank you for the referral of this patient. Sincerely, London Wade, PT, ATC Balance/Gait/Functional tests - Balance/Special Test Scores Lower Extremity Functional Score: 53
== END 2022-05-13 19:00 | disposition home or self-care (01) ==
LOC: PT 14:30
PROVIDERS: PCP Family Medicine; Referring Provider Orthopaedic Surgery; Visit Provider Orthopaedic Surgery
DX: M17.0 Bilateral primary osteoarthritis of knee (principal)
CPT/HCPCS: 97110; 97140; 97161; 97164

== ENCOUNTER → 2022-06-01 | Outpatient (CLI) | payer OTHER, SELFPAY ==
--- NOTE | 2022-06-01 15:44 | CT_ITS ---
PROCEDURE: CT LEFT KNEE WITHOUT CONTRAST REASON FOR EXAM: Female, 62 years old. Preoperative planning for the MakoPlasty Robotic knee surgery. Knee pain. TECHNIQUE: Transaxial CT of the hip, knee and ankle were obtained. Coronal and sagittal reconstruction images of the knee were provided. Individualized dose optimization techniques were used for this CT. COMPARISON: None. FINDINGS: Standard protocol for the preoperative planning for the MakoPlasty robotic knee surgery was performed. Osteopenia. Mild arthrosis of the hip. Moderate tricompartmental arthrosis of the knee. Mild arthrosis of the tibiotalar joint. CT/Extremity Lower without Contra IMPRESSION: Preoperative MakoPlasty Robotic knee surgical CT evaluation with findings as described above. Electronically Signed: Ike Franco, at 9:17 EST ,
== END | disposition home or self-care (01) ==
LOC: CT 15:43
PROVIDERS: PCP Family Medicine; Referring Provider Orthopaedic Surgery; Visit Provider Orthopaedic Surgery
DX: M17.0 Bilateral primary osteoarthritis of knee (principal)
CPT/HCPCS: 73700

== ENCOUNTER 2022-08-30 05:30 | Day surgery (SDC) | payer OTHER, SELFPAY ==
--- NOTE | 2022-08-17 06:50 | EKG12_ITS ---
Test Reason : PRE OP Blood Pressure : / mmHG Vent. Rate : 065 BPM Atrial Rate : 065 BPM P-R Int : 172 ms QRS Dur : 110 ms QT Int : 408 ms P-R-T Axes : 011 -30 015 degrees QTc Int : 424 ms Normal sinus rhythm Left axis deviation Nonspecific T wave abnormality Abnormal ECG Confirmed by RICARDO DELGADO, JOSÉ ([id number]), primer expeditor and drier KIMBERLI NESBITT ([id number]) on 08/18/2022 9:55:49 AM Referred By: KELECHI Confirmed By:JOSÉ SILVA MD
[2022-08-17 07:12] LABS: Absolute Lymphocyte Count 1.19 X10^3/uL (0.83-4.51); Absolute Neutrophil Count 3.1 X10^3/uL (2.0-7.7); Basophil# 0.01 X10^3/uL; Basophil% 0.2 % (0-1); Eosinophil# 0.04 X10^3/uL; Eosinophils% 0.9 % (0-5); Hematocrit 37.1 % (37-47); Hemoglobin 12.3 g/dL (12.0-15.0); Lymphocyte # 1.19 X10^3/ul (0.83-4.51); Lymphocyte % 26.2 % (19-41); Mean Corp Hgb Conc 33.2 g/dL (32-36); Mean Corpuscular Hgb 29.2 pg (27.0-32.0); Mean Corpuscular Volume 88.1 fL (81-99); Mean Platelet Vol. 9.6 fl (6.2-12.0); Monocyte# 0.24 X10^3/uL; Monocyte% 5.3 % (0-10); NRBC Flagged by Analyzer 0 % (0-5); Neutrophil # 3.05 X10^3/uL (2.7-7.7); Platelet Count 222 K/mm3 (150-450); RBC Distribution Width CV 13.9 % (11.6-14.6); RBC Distribution Width SD 45.1 fl (35.1-43.9); Red Blood Count 4.21 M/mm3 (4.2-5.4); White Blood Count 4.6 K/mm3 (4.4-11.0)
[2022-08-17 07:29] LABS: Partial Thromboplast Time 26.5 Seconds (24.1-36.2); Prothrombin Time (Protime)PT. 13.3 SECONDS (11.7-14.9)
[2022-08-17 07:45] LABS: Magnesium 1.9 mg/dL (1.6-2.6)
[2022-08-17 07:49] LABS: Anion Gap 7 (5-15); BUN 22 mg/dL (7-18); BUN/Creat Ratio 31.1 RATIO (10-20); Calcium,Total 9.4 mg/dL (8.5-10.1); Chloride 105 mmol/L (98-107); Creatinine, Serum 0.71 mg/dL (0.55-1.02); EST Glomerular Filtration Rate 88 mL/min (>60); Est Glom Filt Rate - Afr Amer 107 mL/min (>60); Glucose 123 mg/dL (74-106); Potassium 3.7 mmol/L (3.5-5.1); Sodium Level 142 mmol/L (136-145)
[2022-08-17 08:50] LABS: Hemoglobin A1c 5.5 % (3.8-5.6)
[2022-08-18 04:07] LABS: Fructosamine 237 umol/L (0-285)
[2022-08-30] VITALS (14 sets, daily range): BP systolic 85–150; BP diastolic 49–70; PULSE 53–72; RESP 16–18; TEMP 36–36.8; O2SAT 96–100; BMI 32.1
[2022-08-30] MEDS: Acetaminophen 500 MG Tablet 1000 MG PO ×2 (06:16→15:39)
[2022-08-30] MEDS: Celecoxib 200 MG Capsule 400 MG PO (06:16)
[2022-08-30] MEDS: Gabapentin 600 MG Tablet PO (06:17)
[2022-08-30] MEDS: Scopolamine 1mg/72hr Patch 1 PATCH TD (06:17)
[2022-08-30] MEDS: Lactated Ringers 1,000 ML 125 ML IV ×2 (06:23→10:01)
[2022-08-30] MEDS: Magnesium 2 GM for ERAS IV (06:24)
[2022-08-30 07:06] LABS: Bedside Glucose 89 mg/dL (74-106)
--- NOTE | 2022-08-30 07:24 | HP.PCM_ITS ---
History and Physical Date of Admission: 08/30/22 [facility] [address] [facility] [address] [address] [place] [address] OFFICE VISIT Date of Service:? 08/19/22 MR#: [id number] Acct: [id number] Name:JESSICA RIBEIRO Rep #: [id number] : 1960 ? ? Provider: Dr. Harjinder Gomez, DO Age/Sex:? 62/F ? ? Location: [facility] – [place].DORY Status: Signed Intake Vital Signs ? 02/15/2206:51 Height 5 ft 8 in Intake Visit Reasons:?left knee Chief Complaint: right knee Allergies No Known Allergies Allergy (Verified 08/19/22 11:19) Medications antiarthritic combination no.2 900 mg tablet (glucosamine-chondroitin) 1,500 mg PO DAILY 05/12/21 [History Confirmed 08/19/22] ascorbic acid (vitamin C) 500 mg tablet 500 mg PO DAILY 05/12/21 [History Confirmed 08/19/22] calcium citrate 200 mg (950 mg) tablet 500 mg PO DAILY 05/12/21 [History Confirmed 08/19/22] cholecalciferol (vitamin D3) 25 mcg (1,000 unit) capsule 5,000 unit PO DAILY 05/12/21 [History Confirmed 08/19/22] sertraline 50 mg tablet 25 mg PO DAILY 05/12/21 [History Confirmed 08/19/22] lactobacillus combination no.4 3 billion cell capsule (Probiotic) 1 cell PO DAILY 02/01/22 [History Confirmed 08/19/22] acetaminophen 500 mg tablet 1,000 mg PO Q6H PRN #100 tabs 02/15/22 [Rx Confirmed 08/19/22] omega-3 fatty acids-vitamin E 1,000 mg capsule 1 cap PO DAILY 08/16/22 [History Confirmed 08/19/22] PFSH Medical History? Anxiety Arthritis Bilateral primary osteoarthritis of knee Depression History of edema Non-smoker Wears glasses Surgical History? H/O tubal ligation History of back surgery History of wisdom tooth extraction Family History? Mother CancerFather COPD (chronic obstructive pulmonary disease) Social History? household members:? spouse Smoking Status:? Never smoker alcohol intake:? never HPI left knee Details: Parts of this documentation were recorded by a scribe, this documentation accurately reflects the service provided and the decisions made by me, Dr. Harjinder Gomez, DO 08/19/22 0806. JESSICA BORREGO is a 62 year old F here today for left knee IOVERA treatment. Denies any changes.? Ortho Exam General General: Yes no acute distress Neurologic: Yes alert and Yes oriented x3 Psychologic: Yes reasonable and appropriate Right Knee Skin/Wound: Yes healed, No erythema, No ecchymosis and Yes swelling Contralateral Normal: Yes Homans Sign: No Knee ROM: Yes ROM-Extension -20 to 0 and No ROM-Flexion 0-140 (112) Examination: No Med jt line tenderness and No Lat jt line tenderness Quad Atrophy: No Stability: NML: Valgus 0, NML: Valgus 30 and NML: Varus 0 Patellar Tilt Normal: Yes Patella Grind: No KNEE: Inspection of the right knee shows no acute or gross abnormalities.? Her incision is healed extremely well with minimal scarring.? There is no no ecchymosis/bruising, erythema, or other skin changes.? Still some widening/some minor swelling in the knee.? She does have good range of motion.? She is a little stiff today having approximately 112 degrees where previously she was 120 (although therapy consistently had around 110). Overall her extension is very good with no obvious extension lag.? She continues to have great stability of the collateral ligaments and no pains with varus or valgus stress.? No patellar instability.? There is no reproducible joint line tenderness today.? She continues to have soft compartments and no calf tenderness.? She does have some generalized nonpitting edema in the lower extremity compared to the left side.? She does have normal sensation throughout the extremity other than on the lateral aspect of the knee lateral to the incision. Head: Normocephalic Atraumatic Chest: symmetrical rise, non-labored breathing, no audible wheeze Abdomen: no guarding, non-rigid Office Procedures Iovera Procedure Details:: Preoperative diagnosis : Left knee DJD Postoperative diagnosis: Same Procedure: Cryotherapy with Iovera device to anterior femoral cutaneous nerve and 2 branches of the infrapatellar saphenous nerve III nerves in total Description of procedure: Patient was brought back to the procedure room the operative extremity was identified by both patient and physician.? The PIP flexion crease was measured to the midpoint of the patella and this distance was divided in 3 resulting in 10 cm location proximal to the midpoint of the patella.? This line was extended medial and lateral to the extent of the edges of the patella.? This was our treatment line for the anterior femoral cutaneous nerve.? A second treatment line was made 5 cm medial to the inferior pole of the patella and 5 cm distally.? The leg was prepped with alcohol and Betadine.? Lidocaine with epi was used along the treatment lines.? Using the Iovera device treatment lines were treated with 1 minute cycles.? Reproduction of paresthesias was monitored in the area of nerve distribution.? Once all 3 nerves were treated across the 2 treatment lines patient was cleaned and a light dressing with 4 x 4 and Param wrap was applied.? Patient tolerated the procedure without complication. Supplemental Info 05/12/2021 x-ray right knee: Advanced knee arthrosis [id number] medial compartment varus deformity 05/12/2021 x-ray left knee: Advanced knee arthrosis [id number] medial compartment varus deformity Coding Level of Care Code Attention Jonathan Diagnoses Left knee pain? M25.562 Assessment and Plan Assessment and Plan (1) Left knee pain: ?Status:?Acute ? ? ? Orders: Orders Iovera Today M17.12 - Unilateral primary osteoarthritis, left knee ? Plan Iovera procedure performed today with left knee without complication patient tolerated well. 08/19/22 1204 <Electronically signed by Harjinder Gomez DO> Date Harjinder Gomez DO Cosigner Signature: Date (if applicable) ? CC: ? ~ I have examined the patient and the H&P has been reviewed. There are no clinical changes since date of exam.
--- NOTE | 2022-08-30 07:30 | KNEE_PTH ---
PATIENT: JESSICA BORREGO LOC: [facility] [place] U#:[id number] AGE/SX: 62/F ROOM: RE08/30/[address]: Dr. Harjinder Gomez DO : 1960 BED: DIS: 08/30/2022 SPEC #: [id number] RECD: 08/30/22 12:57 STATUS: USAMA REQ #: [id number] DASIA: 08/30/22 07:[address]: Harjinder Gomez DEPT: SURGICAL PATHOLOGY RECD BY: Kayla Rodriguez ENTERED: 08/30/22 13:09 SP TYPE: TOTAL KNEE OTHR DR: Dr. Luis F Ghosh MD Tissues: Knee, NOS Procedures: Decalcification bone/plaque Surgery Specimen Level IV HEADER OPERATION: ERAS, total knee replacement robotic arm assist PRE-OP DIAGNOSIS: Left knee pain TISSUE SUBMITTED: Left knee bone and soft tissue MICROSCOPIC DIAGNOSIS Bone and soft tissue, left knee, total knee replacement/resection: Pieces of bone with degenerative osteoarthritic changes. Fibroadipose tissue, fibroconnective tissue and reactive synovial tissue. ASHELY:skylar 09/02/2022 MICROSCOPIC DESCRIPTION Slides are reviewed. GROSS DESCRIPTION Received is one container designated bone and soft tissue left knee. The specimen consists of multiple fragments of lucero-yellow bone measuring in aggregate 10.0 x 9.5 x 3.0 cm. Also in the specimen container are multiple fragments of yellow-white soft tissue measuring in aggregate 6.5 x 5.5 x 2.0 cm. A number of bony fragments contain articular surfaces consistent with tibial plateau and femoral condyle and displaying prominent osteophyte formation, eburnation and bone erosion. Paste Up Copy Camera Operator sections are submitted in two cassettes as follows: 1 - soft tissue, 2 - bone after decalcification. / ASHELY:skylar 08/30/2022 TC:5 CPT: 16451, 83953
[2022-08-30] MEDS: Cefazolin 2 GM in 0.9% Normal Saline 100 ML IV (07:54)
[2022-08-30] MEDS: TXA 1000mg in NS100 100ml (IVPB at Incision) 660 MG IV (08:14)
[2022-08-30] MEDS: dexAMETHasone 10 MG/ML Vial IV (08:26)
[2022-08-30] MEDS: TXA 1000mg in NS100 100ml (IVPB at Closure) 660 MG IV (09:14)
[2022-08-30] MEDS: 0.9% Normal Saline (Pres. free 10 ML Vial (09:55)
[2022-08-30] MEDS: dexAMETHasone 4 MG/ML Vial (09:55)
[2022-08-30] MEDS: Bupivacaine 0.5% PF 10 ML VIAL (09:55)
[2022-08-30] MEDS: Epinephrine (1 mg/ml) 1 MG/ML VIAL (09:55)
--- NOTE | 2022-08-30 10:12 | OP.PCM_ITS ---
Operative Report Date of Procedure: 08/30/22 Preoperative diagnosis: Left knee DJD Postoperative diagnosis: Same Procedure: Left total knee arthroplasty CT guided Robotic Assisted Implant: Wilton triathlon press fit, femoral component size5, tibial baseplate size 4, asymmetric patella size 35, polyethylene X3 size 9 CS Anesthesia: Spinal with adductor canal block Tourniquet time: 12 minutes at 300 mmHg Complications: None Condition: Stable to PACU Estimated blood loss: 200 cc Ceramic Engineering Professor Kaden Kan. My physician assistant news director was a vital part of this case. He was important in appropriate retraction during the case, and protection of soft tissues during procedure. His intimate knowledge of the case and my steps aided in safe and expedient completion of the procedure as well as appropriate position of the extremity during the case. He was also vital in assisting with closure under my direct supervision. Indication for procedure: This is a 62-year-old female with long standing degenerative joint disease of the knee who has failed conservative treatment and wished to proceed with elective total knee arthroplasty. Risk benefits and alternatives were reviewed including; risk of bleeding, infection, nerve artery and tissue damage, continued pain, postoperative stiffness, venous thromboembolism, need for postoperative rehabilitation, mechanical feel to the knee, and expected postoperative course. The pre- operative CT and templating was performed with component sizing. Procedure: The patient was met in the preoperative holding area. The operative extremity was identified by both patient and physician and was marked. Patient was met by anesthesia. An adductor canal block was placed by anesthesia postop eratively the patient was brought back to the operating room on a wheeled cart and transferred to the operating table in the supine position. Anesthesia was started. A well-padded tourniquet was placed on the operative extremity. The patient was prepped and draped in the usual sterile fashion. A timeout was called to ensure the proper patient procedure and extremity were being contemplated. An esmarch was used to exsanguinate the extremity. The tourniquet was inflated. A 10 blade scalpel was used to make a midline incision down through the skin and subcutaneous tissue. Skin retractors placed. Bovie and Aquamantis were used to perform meticulous hemostasis. full-thickness flaps were elevated medial and lateral along the joint capsule. A deep blade scalpel was used to perform a medial parapatellar arthrotomy. The knee was brought to full extension. A bovie was used to release the soft tissues off the most proximal aspect of the medial tibial plateau, a three-quarter inch curved osteotome was also used in this process. The infrapatellar fat pad was excised. The suprapatellar fat pad was excised partially anteriorolateraly and portion the anterioromedial pad was elevated from the femur. At this point our intra- articular femoral array was placed at a 45 degree angle proximal and posterior to the medial epicondyle. femoral checkpoint was placed at this time. Our tibi al array was placed greater than 1 hands breath below the incision at a 20 degree angle stab incisions were made with a 15 blade scalpel and pins were placed and attached to the tibial array , tibial checkpoint was placed in the proximal tibial metaphysis. Tourniquet was let down. At this point registration zambrano were taken throughout the knee . Once the knee was registered we then tensioned the medial and lateral ligaments in extension and 90 degrees of flexion. We then used these numbers to adjust our components within parameters to balance the knee in both flexion and extension once this was done on our monitor we then proceeded with using the robotic arm to make our tibial plateau cut, anterior and posterior chamfer and distal femur cuts. we removed the cut fragments with the use of a bovie and Flash, we did use a lamina valve steamer to insure we visualized and removed all posterior osteophytes and at this time also used the Aquamantis on the posterior joint capsule. we then trialed and achieved the desired plan with a well-balanced knee. we used the green probe to mario the corresponding tibial rotation based on our CT template. Lug holes were drilled in the femur the tibia preparation was completed with the appropriate sized base plate pinned based on previous rotation mario. An appropriate sized fin punch was used on the tibia and 4 corner drill was used for the press fit component and the patella was prepared by first using a caliper to ensure sufficient bone stock and a patellar reamer to remove the desired amount of bone. lug holes drilled for an asymmetric poly. We then brought the knee through range of motion with excellent patellar tracking. We thoroughly irrigated the knee. Trial components were removed a posterior capsular injection was preformed with our standard cocktail. In addition the aqua Mantis was also used to aid in hemostasis. Betadine rinse was allowed to sit and washed out completely. Components were press-fit into place. Aricept rinse was then used followed by several more liters of irrigation after it was allowed to sit. The joint capsule was closed with #1 Ethibond [id number]-fhhdd's followed by Vicryl in the subcutaneous tissues with nikhil in the skin. Arrays and checkpoints were removed prior to closure all counts were correct stab incisions were closed with a staple standard dressing in the form of Mepilex AG for the main incision and a small Mepilex over the pin holes. Thigh-high ROBBIN hose applied over top of dressing. Patient tolerated the procedure well and was directed to PACU in stable condition . There were no intraoperative complications.
--- NOTE | 2022-08-30 10:17 | DCINST_ITS ---
Discharge Instructions Diet Discharge Diet: No restrictions Activity Weight Bearing Status: Weight bearing as tolerated Dressing / Incision Call your doctor if you observe: Shortness of breath and Chest pain Additional Dressing/Incision Instructions:: Ice and elevate lower extremities 2 weeks while not ambulating. Ambulation is encouraged. Weight bearing as tolerated. Use assistive devise for stability. Encourage FULL knee extension and flexion 1 time EVERY time you get up and down and MULTIPLE times per day. No showering 72 hours after surgery. Begin showering postop day #3. Remove the dressing prior to shower and gently wash with warm water and antibacterial soap then pat dry and place abdominal pad (or plain gauze) and ROBBIN hose over top. This is to be done daily. Do not submerge for 3 weeks. If not showering daily after the initial 72 hours then you must clean incision and change dressing daily. Do not allow animals near the incision area. Keep clean. Follow anti- coagulation recommendations as prescribed. Do not take any NSAIDs while on blood thinner. Do not take any additional narcotic pain medication other than what was prescribed on your surgery day without discussing with physician. Narcotic medication can be addictive. Do not drink alcohol while taking narcotics. Supplement narcotic prescription with acetaminophen 1000 mg 4 times a day. Start physical therapy. If you are not currently scheduled for physical therapy or you are unsure of appointment time please call office [facility] to arrange. Call Dr. Gomez with any concerns. Follow Up Care Please Follow Up With: Harjinder Gomez DO When: 2 weeks Test Results: Test results from this visit will be discussed in further detail at your follow- up appointment, if applicable. Discharge Plan Admission Primary Reason for Your Visit: Left total knee arthroplasty Attending Provider: Harjinder Gomez Primary Care Provider: Luis F Ghosh Discharge Orders/Prescriptions Prescriptions: New acetaminophen [acetaminophen] 500 mg tablet 1,000 mg PO Q6H PRN Qty: 100 1RF cephalexin [cephalexin] 500 mg capsule 1,000 mg PO Q8 Qty: 4 0RF Rx Instructions: take 2 tabs at 9:00 pm and 2 tabs after 5 am when you wake up Eliquis 2.5 mg tablet 2.5 mg PO BID Qty: 30 0RF oxycodone 5 mg tablet 5 - 10 mg PO Q4H PRN (Reason: pain) 7 Days Qty: 60 0RF Continued sertraline 50 mg tablet 25 mg PO DAILY glucosamine-chondroitin 900 mg tablet 1,500 mg PO DAILY calcium citrate 200 mg (950 mg) tablet 500 mg PO DAILY cholecalciferol (vitamin D3) 25 mcg (1,000 unit) capsule 5,000 unit PO DAILY ascorbic acid (vitamin C) 500 mg tablet 500 mg PO DAILY Probiotic 3 billion cell Capsule 1 cell PO DAILY omega-3 fatty acids-vitamin E 1,000 mg Capsule 1 cap PO DAILY No Action acetaminophen [acetaminophen] 500 mg tablet 1,000 mg PO Q6H PRN Qty: 100 0RF Other Ambulatory Orders: 12 Lead EKG (Routine) Timeframe: [id number] Location: None Selected Ordered By: Dr. Harjinder Gomez Referrals / Follow Up: Luis F Ghosh MD [Primary Care Provider] - Disposition Disposition (needs filled in before D/C Order can be placed): Home, Self Care
--- NOTE | 2022-08-30 10:40 | RAD_ITS ---
STUDY: X-RAY - LEFT KNEE REASON FOR EXAM: Female, 62 years old. Postoperative evaluation after total knee arthroplasty. TECHNIQUE: 2 view(s) of the knee. COMPARISON: None. FINDINGS: There is a 3 component total knee arthroplasty in anatomic position. There are expected post-operative findings. There are no complications. No other significant abnormality is identified. RAD/Knee 1 or 2 Views IMPRESSION: Total knee arthroplasty in anatomic alignment without complications. Electronically Signed: Ike Franco MD at 11:49 EDT ,
[2022-08-30] MEDS: Ketorolac 30 MG/ML Syringe IV (11:28)
[2022-08-30] MEDS: 0.9% Normal Saline 1,000 ML 125 ML IV ×2 (12:16→15:39)
[2022-08-30] MEDS: Cefazolin 1 GM/50 ML BAG IV (12:32)
== END 2022-08-30 17:04 | disposition home or self-care (01) ==
LOC: SDC 05:32 → AC 05:33
PROVIDERS: Anesthesiology; PCP Family Medicine; Referring Provider Orthopaedic Surgery; Visit Provider Orthopaedic Surgery
PROC: 0SRD0JZ Replacement of Left Knee Joint with Synthetic Substitute, Open Approach (ICD-10-PCS; CPT 27447; principal; 2022-08-30 07:00)
DX: M17.12 Unilateral primary osteoarthritis, left knee (principal); Z96.651 Presence of right artificial knee joint; F32.A Depression, unspecified
CPT/HCPCS: 27447; 01402; 36415; 73560; 80048; 82962; 82985; 83036; 83735; 85025; 85610; 85730; 86850; 86900; 86901; 87081; 88305; 88311; 93005; 97116; 97162; C1776; J7030; J7120; J2405; J3490

== ENCOUNTER 2022-11-04 13:30 | Outpatient (RCR) | payer OTHER, SELFPAY ==
--- NOTE | 2022-09-01 11:15 | HP.PTEVAL_ITS ---
Patient's Visit Information JESSICA BORREGO is a 62 year old F referred to Physical Therapy by Dr. Harjinder Gomez DO with a diagnosis of L TKA 08/30/22. Date of Evaluation: 09/01/22 Physical Therapist: London Wade PT, ATC - Visit Plan Frequency: 2-3x /Week Duration: 4-6 Weeks Plan: L knee stretching and mobilizations, strengthening, balance and proprio, core strengthening, nustep, and HEP - Subjective DOS: 08/30/22. Pt had a L TKA performed at that time. Pt reports the pain had been okay until last night. Then the pain kicked in and she was unable to sleep throughout the night. Pt reports her knee has loosened up a little bit today. Pt reports a chronic Hx of L knee pain prior to the surgery. Pt reports 2 stairs to get into house that she has to negotiate one step at a time. Pt denies any tingling or numbness in L knee. 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 3/10 pain while sitting here in the clinic, 9/10 at worst (when she was trying to sleep last night) - Pain L knee Pain Intensity (Out of 10): 3 Pain Intensity Range: 9 - Objective Neuro: B LE sensation is WNL to light touch. B achilles reflex= 1/3. Girth at joint line: R knee 43.5, L knee 47.5 cm. ROM: R knee 0-10-115, L knee 0-20-95 degrees. MMT: L knee flex= 20, ext= 0 #F,: R knee flex= 40, ext= 48 #F. Tu.09 - Balance/Special Test Scores WOMAC Total Score: 38 WOMAC Percentatge: 60.4200 - Goals Goal 1:: Decrease L knee pain x 50% to aid with sleep Goal Time Frame: 4-6 Weeks Goal 2:: Increase L knee ROM x 30 degrees to aid with restoring a more normalized gait pattern Goal Time Frame: 4-6 Weeks Goal 3:: Increase L knee extension strength x 25 #F to aid with stair negotiation Goal Time Frame: 4-6 Weeks Goal 4:: I with HEP Goal Time Frame: 4-6 Weeks - Rehabilitation Potential Physical Therapy Diagnosis: Pt has L knee pain, weakness, and limited ROM secondary to L TKA Rehabilitation Potential: Excellent - Anticipated Interventions Patient/Client Instruction: Educate patient on: Condition, Plan of Care For the Purpose of:: To improve self management Therapeutic Exercise to Include: Strength training, Endurance training, Balance training, Flexibilty training, Gait and locomotor training, Passive ROM, Active ROM, Dynamic Lumbar Stabilization For the Purpose of:: To decrease pain, To increase ROM, To improve muscle performance and motor function Cryotherapy (ice pack, ice massage): Yes For the Purpose of:: To decrease pain Thank you for the opportunity to evaluate your patient. For Medicare and Medicare HMO plans, please review the plan of care and approve it. It will need to be FAXED BACK to us at [phone] for Medicare purposes. For Medicare only, by signing this I certify the plan of care. Please let me know if there are questions or concerns regarding this plan of care. Physician Signature: Date:
--- NOTE | 2022-09-30 11:02 | HP.PTREVAL ---
Re-Evaluation Intro: Dr. Harjinder Gomez, DO, It has been my pleasure to treat JESSICA BORREGO over the last 12 visits for L TKA 08/30/22. Please see the progress note below for an update on the physical therapy plan of care! Subjective Subjective: I am really sore from my last Rx Objective Objective/Function: L knee pain ranges from 2-6/10 L knee ROM: 0-13-110 L knee MMT: flex= 38, ext= 26 #F Plan Plan Plan: Cont with POC Balance/Gait/Functional tests Balance/Special Test Scores WOMAC Total Score: 38 WOMAC Percentage: 60.4200 Goals Goals Goal 1:: Decrease L knee pain x 50% to aid with sleep Goal Time Frame: 4-6 Weeks Goal Progress: Progressing Goal 2:: Increase L knee ROM x 30 degrees to aid with restoring a more normalized gait pattern Goal Time Frame: 4-6 Weeks Goal Progress: Progressing Goal 3:: Increase L knee extension strength x 25 #F to aid with stair negotiation Goal Time Frame: 4-6 Weeks Goal Progress: Progressing Goal 4:: I with HEP Goal Time Frame: 4-6 Weeks Goal Progress: Progressing Anticipated Interventions Anticipated Interventions Patient/Client Instruction: Educate patient on: Condition and Plan of Care For the Purpose of:: To improve self management Therapeutic Exercise to Include: Strength training, Endurance training, Balance training, Flexibilty training, Gait and locomotor training, Passive ROM, Active ROM and Dynamic Lumbar Stabilization For the Purpose of:: To decrease pain, To increase ROM and To improve muscle performance and motor function Cryotherapy (ice pack, ice massage): Yes For the Purpose of:: To decrease pain Re-Evaluation Ending Re-evaluation ending: Please do not hesitate to contact me at [phone] by phone or if you have questions or concerns regarding this new plan of care! Sincerely, London Wade, PT, ATC
== END 2022-11-04 19:00 | disposition home or self-care (01) ==
LOC: PT 13:30
PROVIDERS: PCP Family Medicine; Referring Provider Orthopaedic Surgery; Visit Provider Orthopaedic Surgery
DX: M17.0 Bilateral primary osteoarthritis of knee (principal)
CPT/HCPCS: 97110; 97140; 97161; 97164

== ENCOUNTER 2024-10-30 09:30 | Outpatient (RCR) | payer OTHER, SELFPAY ==
--- NOTE | 2024-07-02 07:24 | HP.OTEVAL_ITS ---
Patient's Visit Information Visit Information Visit Information: JESSICA BORREGO is a 64 year old F, referred to Occupational Therapy by Dr. Marie Rodriguez MD, with a diagnosis of right SF PIP middle phalanx dfx and extensor central slip rupture. 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 flowers. was then see at by Dr. Rodriguez. and 05/28/24 pt underwent right small finger repair of extensor (central slip) and ORIF of intra-articular middle phalanx fx. pt is right handed. pt works at [employer] as [employer]. pt arrives 4 weeks and 6 days s/p from extensor central slip repair - pt had pins removed last week and arrives with custom orthosis placing right LF and RF in extension-(noted hyper-ext of DIP) pt states she is limited with use of her right hand with ADLs and IADLs. Pain right LF: Current Pain Intensity: 0 Pain Intensity Range: 2 ROM MP: right 0/70 left 0/90 PIP: right -25/35 left 0/100 DIP: right +20/0 left 0/50 ROM Comments: following light PROM of DIP pt was able to complete active DIP flexion to +5 Strength Strength Comments: will test later date Edema PIP: right LF 7 left 5 Sensation Sensation Comments: denies Quick DASH-Disab of Arm,Shoulder& Hand Quick DASH Score: 35.0000 Goals Goal:Daily scar massage when approriate: Yes Goal:ROM equal to unaffected hand: Yes Goal:Drop Hammer Set Up Operator/Pinch strength at least 75% of unaffected hand: Yes Comment: initiate when cleared by Goal:No pain with affected hand use: Yes Goal:PIP Circumferences equal to unaffected hand: Yes Goal:Full use of affected hand in daily activities including work: Yes Goal:Decrease scar hypersensitivity: Yes Other Goal: orthosis use: pt will demo understanding of orthosis use by end of 1st session to allow support and protection while structures are healing. Rehabilitation General Assessment: Pt arrives 4 weeks and 6 days s/p from extensor central slip repair- wit pins removed last week. Pt arrives in orthosis states bothersome. pt demo newly healing structures and limited ability to use her dominate hand fo r ADLs and IADLs. pt would benefit from further skilled OT services 1-2x week for 6 weeks to return pt to PLOF. Today therapist ed. and completed scar mobilization, ed. pt in active DIP flexion also ed. pt to avoid hyper extending at her MPJ of SF. Pt demo understanding and agrees to POC. Anticipated Interventions Anticipated Interventions: A/AAROM/PROM, Strengthening, Edema Control, Scar Care, Triggerpoint Release, Desensitization, Modalities, Orthoses, Joint Protection/Energy Conservation, Ergonomic Education, Fine Motor Coord/Cayetano, ADL Training, Education re assistive Equipment, Education re Diagnosis and Home Program Visit Plan Frequency: 1-2x /Week Duration: 6 Weeks TEXT: Thank you for the opportunity to evaluate your patient. For Medicare and Medicare HMO plans, please review the plan of care and approve it. It will need to be FAXED BACK to us at [phone] for Medicare purposes. Please let me know if there are questions or concerns regarding this plan of care. Physician Signature:_ Date:
--- NOTE | 2024-07-22 17:15 | HP.OTREVAL ---
Re-Evaluation Intro: Dr. Marie Rodriguez MD, It has been my pleasure to treat JESSICA BORREGO over the last 7 visits for right SF PIP middle phalanx dfx and extensor central slip rupture. Please see the progress note below for an update on the occupational therapy plan of care! Subjective Subjective: pt arrives 7 weeks and 6 days from DOS and 5 weeks and 1 day from pin removal. pt arrives without splints- states swelling and soreness- ranges from day to day- Objective Objective/Function: right LF PIP -15*/ 80* pt continues to demo with Hyper ext at DIP of right LF +7 improved from +20. pt has been ed. on avoiding hyper ext at MP level to decrease flexion of PIPJ- pt making small gains with motion and has been working with PROM and AROM. pt is using oval 8 to decrease DIP hyper ext- but this does dig into her finger making it sore- she works with a number of splints to support PIP at 0 and flex DIP. Plan Plan Frequency: 1-2x /Week Duration: 6 Weeks Plan: cont with ROM splint to decrease deformity Goals Goals Patient Goals: Regain Mobility and Use Hand/Wrist/Arm Normally Again Goal:Daily scar massage when approriate: Yes Goal:ROM equal to unaffected hand: Yes Goal:Chargeback Specialist/Pinch strength at least 75% of unaffected hand: Yes Goal:No pain with affected hand use: Yes Goal:PIP Circumferences equal to unaffected hand: Yes Goal:Full use of affected hand in daily activities including work: Yes Goal:Decrease scar hypersensitivity: Yes Other Goal: orthosis use: pt will demo understanding of orthosis use by end of 1st session to allow support and protection while structures are healing. Anticipated Interventions Anticipated Interventions Anticipated Interventions: A/AAROM/PROM, Strengthening, Edema Control, Scar Care, Triggerpoint Release, Desensitization, Modalities, Orthoses, Joint Protection/Energy Conservation, Ergonomic Education, Fine Motor Coord/Cayetano, ADL Training, Education re assistive Equipment, Education re Diagnosis and Home Program Re-Evaluation Ending Re-evaluation ending: Please do not hesitate to contact me at [phone] by phone or if you have questions or concerns regarding this new plan of care! Sincerely, Lynne Donnelly, OTR/L, CHT
--- NOTE | 2024-08-28 16:33 | OTREVAL_ITS ---
Re-Evaluation Intro: Dr. 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 Please see the progress note below for an update on the occupational therapy plan of care! Subjective Subjective: pt arrives states she is doing ok- not using any brace and working on flexion her finger is feeling great- still limited with motion but able to hold objects, grasp steering wheel, type on keyboard and hold her tooth brush. Objective Objective/Function: pt demo following serial cast for 3 weeks a cont. demo with boutonniere deformity. 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 pt working with LMB and blocking for flex/ext- return to next week for re-check Goals Goals Patient Goals: Regain Mobility and Use Hand/Wrist/Arm Normally Again Goal:Daily scar massage when approriate: Yes Goal:ROM equal to unaffected hand: Yes Goal:Mirror Specialist/Pinch strength at least 75% of unaffected hand: Yes Goal:No pain with affected hand use: Yes Goal:PIP Circumferences equal to unaffected hand: Yes Goal:Full use of affected hand in daily activities including work: Yes Goal:Decrease scar hypersensitivity: Yes Other Goal: orthosis use: pt will demo understanding of orthosis use by end of 1st session to allow support and protection while structures are healing. Anticipated Interventions Anticipated Interventions Anticipated Interventions: A/AAROM/PROM, Strengthening, Edema Control, Scar Care, Triggerpoint Release, Desensitization, Modalities, Orthoses, Joint Protection/Energy Conservation, Ergonomic Education, Fine Motor Coord/Cayetano, A DL Training, Education re assistive Equipment, Education re Diagnosis and Home Program Re-Evaluation Ending Re-evaluation ending: Please do not hesitate to contact me at [phone] by phone or if you have questions or concerns regarding this new plan of care! Sincerely, Lynne Donnelly OTR/L, CHT
--- NOTE | 2024-10-30 10:06 | HP.OTDCSUM ---
Discharge Summary D/C Summary: It has been my pleasure to treat JESSICA BORREGO under orders from Dr. 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 Please see the following information for a summary of their discharge status. Overall Improvement % Improvement: 75 Objective Objective/Function: right LF PIP -20/90* right DIP +15/40* pt states she is happier with her function at this time. can use ADLs and IADls without too much difficulty. Goals Patient Goals: Regain Mobility and Use Hand/Wrist/Arm Normally Again Goal:Daily scar massage when approriate: Yes Goal:ROM equal to unaffected hand: Yes Goal:Dishwasher Preparer/Pinch strength at least 75% of unaffected hand: Yes Goal:No pain with affected hand use: Yes Goal:PIP Circumferences equal to unaffected hand: Yes Goal:Full use of affected hand in daily activities including work: Yes Goal:Decrease scar hypersensitivity: Yes Other Goal: orthosis use: pt will demo understanding of orthosis use by end of 1st session to allow support and protection while structures are healing. Plan Plan: following with serial cast 3 weeks with aggressive DIP flexion per order 07/24/24 pt continues to demo deformity despite pts aggressive approach to DIP flexion and serial cast. pt working with LMB and blocking for flex/ext- return to next week for re-check D/C Information Discharge Comments: Pt states she is ready for D/C with [facility]. d/c sentence: If there are questions or concerns regarding this patient's occupational therapy, please fell free to call me at [phone]. Thank you for the referral of this patient. Sincerely, Lynne Donnelly, OTR/L, CHT
== END 2024-10-30 10:26 | disposition home or self-care (01) ==
LOC: OT 09:30
PROVIDERS: Referring Provider Orthopaedic Surgery Hand Surgery; Visit Provider Orthopaedic Surgery Hand Surgery
DX: S62.622D Displaced fracture of middle phalanx of right middle finger, subsequent encounter for fracture with routine healing (principal); M20.021 Boutonniere deformity of right finger(s)
CPT/HCPCS: 97110; 97140; 97166; 97530